=== PATIENT | female | born 2000 | race Caucasian/White ===

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

== ENCOUNTER 2022-01-12 20:55 | Emergency (ER) | payer OTHER ==
[~2022-01-12] VITALS: Ht 152.4 cm; Wt 63.5 kg
[~2022-01-12 20:55] MED LIST changes: -POTA8; +POTA8 PO
[2022-01-12 22:00] LABS: Source, Urine Clean Catch
[2022-01-12 22:10] LABS: Appearance, Urine Clear (Clear); Bilirubin, Urine Neg (Neg); Blood, Urine Neg (Neg); Color, Urine Yellow (P-Yellow); Glucose Qualitative, Urine Neg (Neg); Ketones, Urine 1+ (Neg); Leukocyte Esterase, Urine 1+ (Neg); Nitrite, Urine Neg (Neg); Protein, Urine Neg (Neg); Urobilinogen, Urine NORM (Normal)
[2022-01-12 22:18] LABS: BASOPHILS ABSOLUTE AUTO 0.03 K/mm3 (0.00-0.23); BASOPHILS PERCENT AUTO 0 % (0-2); EOSINOPHILS PERCENT AUTO 0 % (0-6); Hematocrit 36.7 % (33.0-51.0); IMMATURE GRAN ABSOLUTE AUTO 0.02 K/mm3 (0.00-0.10); IMMATURE GRAN PERCENT AUTO 0 % (0-1); LYMPHOCYTES ABSOLUTE AUTO 1.58 K/mm3 (0.84-5.20); LYMPHOCYTES PERCENT AUTO 20 % (21-46); MONOCYTES ABSOLUTE AUTO 0.27 K/mm3 (0.16-1.47); MONOCYTES PERCENT AUTO 3 % (4-13); Mean Corpuscular HGB 25.7 pg (26.0-34.0); Mean Corpuscular HGB Conc 32.7 g/dL (31.5-36.5); Mean Corpuscular Volume 79 fL (80-100); Mean Platelet Volume 10.7 fL (9.1-12.4); NEUTROPHILS ABSOLUTE AUTO 6.12 K/mm3 (1.96-9.15); NEUTROPHILS PERCENT AUTO 76 % (41-73); Platelet Count 240 K/mm3 (150-400); RDW Coefficient Variation 14.5 % (11.7-14.2); RDW Standard Deviation 41.2 fL (35.1-46.3); Red Blood Cell Count 4.67 M/mm3 (3.80-5.20); White Blood Cell Count 8.02 K/mm3 (4.00-11.30)
[2022-01-12 22:38] LABS: Bacteria Few /hpf; Red Blood Cells, Urine 0-2 /hpf (0-2); Squamous Epithelial Cells Few /hpf (Few)
[2022-01-12 22:49] LABS: Albumin, Blood 4.3 g/dL (3.4-5.0); Bilirubin, Total 0.4 mg/dL (0.1-1.0); Calcium, Blood 10.5 mg/dL (8.5-10.1); Creatinine, Blood 0.53 mg/dL (0.40-1.00); Globulin, Blood 4.4 g/dL (2.2-4.0); Potassium, Blood 3.2 mmol/L (3.5-5.5); Total Protein, Blood 8.7 g/dL (6.4-8.2)
[2022-01-12] MEDS ORDERED: LATUDA20 M3 PO (23:46)
[2022-01-13 01:26] LABS: Influenza A, PCR NEGATIVE (NEGATIVE); Influenza B, PCR NEGATIVE (NEGATIVE); Resp Syncytial Virus, PCR NEGATIVE (NEGATIVE); SARS-Cov-2 (COVID-19) PCR, MMC NEGATIVE (NEGATIVE)
[2022-01-14] MEDS ORDERED: LAMOTRIGINE25 M4 PO (11:30)
[2022-01-14] MEDS ORDERED: VENL75ER PO (11:30)
== END 2022-01-13 02:20 | disposition home or self-care (01) ==
LOC: ER 20:55
PROVIDERS: Student in an Organized Health Care Education/Training Program
DX: B34.9 Viral infection, unspecified (principal); R19.7 Diarrhea, unspecified; R11.2 Nausea with vomiting, unspecified; Z20.822 Contact with and (suspected) exposure to COVID-19
CPT/HCPCS: 0241U; 36415; 80053; 81001; 81025; 83690; 85025; 87086; 96360; 99284-25; A9270; J7030

== ENCOUNTER 2022-01-14 10:35 | Emergency (ER) | payer OTHER ==
[~2022-01-14] VITALS: Ht 152.4 cm; Wt 63.5 kg
[~2022-01-14 10:35] MED LIST changes: +LATUDA20 M3 PO
[2022-01-14 11:22] LABS: BASOPHILS ABSOLUTE AUTO 0.04 K/mm3 (0.00-0.23); BASOPHILS PERCENT AUTO 1 % (0-2); EOSINOPHILS ABSOLUTE AUTO 0.01 K/mm3 (0.00-0.68); EOSINOPHILS PERCENT AUTO 0 % (0-6); Hematocrit 38.2 % (33.0-51.0); Hemoglobin 12.1 g/dL (11.5-16.0); IMMATURE GRAN ABSOLUTE AUTO 0.03 K/mm3 (0.00-0.10); IMMATURE GRAN PERCENT AUTO 0 % (0-1); LYMPHOCYTES ABSOLUTE AUTO 1.36 K/mm3 (0.84-5.20); LYMPHOCYTES PERCENT AUTO 19 % (21-46); MONOCYTES ABSOLUTE AUTO 0.26 K/mm3 (0.16-1.47); MONOCYTES PERCENT AUTO 4 % (4-13); Mean Corpuscular HGB 25.2 pg (26.0-34.0); Mean Corpuscular HGB Conc 31.7 g/dL (31.5-36.5); Mean Corpuscular Volume 80 fL (80-100); Mean Platelet Volume 10.7 fL (9.1-12.4); NEUTROPHILS ABSOLUTE AUTO 5.52 K/mm3 (1.96-9.15); NEUTROPHILS PERCENT AUTO 77 % (41-73); Platelet Count 193 K/mm3 (150-400); RDW Coefficient Variation 14.1 % (11.7-14.2); RDW Standard Deviation 40.9 fL (35.1-46.3); White Blood Cell Count 7.22 K/mm3 (4.00-11.30)
[2022-01-14] MEDS ORDERED: VENL75ER PO (11:30)
[2022-01-14] MEDS ORDERED: LAMOTRIGINE25 M4 PO (11:30)
[2022-01-14 11:41] LABS: Albumin, Blood 4.1 g/dL (3.4-5.0); Bilirubin, Total 0.6 mg/dL (0.1-1.0); Bun/Creatinine Ratio 21.4 (12.0-20.0); Calcium, Blood 9.8 mg/dL (8.5-10.1); Creatinine, Blood 0.51 mg/dL (0.40-1.00); Globulin, Blood 4.3 g/dL (2.2-4.0); Potassium, Blood 2.6 mmol/L (3.5-5.5); Total Protein, Blood 8.4 g/dL (6.4-8.2)
[2022-01-15] MEDS ORDERED: Protonix40 MG PO (17:10)
[2022-01-15] MEDS ORDERED: ONDA4ODT MM (17:10)
== END 2022-01-14 15:07 | disposition home or self-care (01) ==
LOC: ER 10:35
PROVIDERS: Physician Assistant
DX: E87.6 Hypokalemia (principal); E83.42 Hypomagnesemia; N15.8 Other specified renal tubulo-interstitial diseases
CPT/HCPCS: 36415; 80053; 83735; 85025; A9270; J3475; J3480; J7030

== ENCOUNTER 2022-01-15 11:32 | Inpatient (IN) | payer OTHER ==
[~2022-01-15] VITALS: Ht 152.4 cm; Wt 63.5 kg
[~2022-01-15 11:32] MED LIST changes: +LAMOTRIGINE25 M4 PO; +VENL75ER PO
[2022-01-15 12:30] LABS: Albumin, Blood 4.1 g/dL (3.4-5.0); Albumin/Globulin Ratio 0.9 (0.8-1.8); Bilirubin, Total 0.5 mg/dL (0.1-1.0); Calcium, Blood 10.1 mg/dL (8.5-10.1); Creatinine, Blood 0.47 mg/dL (0.40-1.00); Globulin, Blood 4.5 g/dL (2.2-4.0); Magnesium, Blood 1.1 mg/dL (1.6-2.4); Potassium, Blood 3.3 mmol/L (3.5-5.5); Total Protein, Blood 8.6 g/dL (6.4-8.2)
[2022-01-15 15:06] LABS: BASOPHILS ABSOLUTE AUTO 0.03 K/mm3 (0.00-0.23); BASOPHILS PERCENT AUTO 0 % (0-2); EOSINOPHILS PERCENT AUTO 0 % (0-6); Hematocrit 35.7 % (33.0-51.0); Hemoglobin 11.8 g/dL (11.5-16.0); IMMATURE GRAN ABSOLUTE AUTO 0.02 K/mm3 (0.00-0.10); IMMATURE GRAN PERCENT AUTO 0 % (0-1); LYMPHOCYTES ABSOLUTE AUTO 1.67 K/mm3 (0.84-5.20); LYMPHOCYTES PERCENT AUTO 23 % (21-46); MONOCYTES ABSOLUTE AUTO 0.29 K/mm3 (0.16-1.47); MONOCYTES PERCENT AUTO 4 % (4-13); Mean Corpuscular HGB Conc 33.1 g/dL (31.5-36.5); Mean Corpuscular Volume 79 fL (80-100); Mean Platelet Volume 10.9 fL (9.1-12.4); NEUTROPHILS ABSOLUTE AUTO 5.42 K/mm3 (1.96-9.15); NEUTROPHILS PERCENT AUTO 73 % (41-73); Platelet Count 203 K/mm3 (150-400); RDW Coefficient Variation 14.4 % (11.7-14.2); RDW Standard Deviation 40.4 fL (35.1-46.3); Red Blood Cell Count 4.54 M/mm3 (3.80-5.20); White Blood Cell Count 7.43 K/mm3 (4.00-11.30)
[2022-01-15] MEDS ORDERED: Protonix40 MG PO (17:10)
[2022-01-15] MEDS ORDERED: ONDA4ODT MM (17:10)
[2022-01-15 19:00] LABS: Bun/Creatinine Ratio 11.9 (12.0-20.0); Calcium, Blood 10.8 mg/dL (8.5-10.1); Creatinine, Blood 0.67 mg/dL (0.40-1.00); Magnesium, Blood 2.3 mg/dL (1.6-2.4)
[2022-01-15 19:03] LABS: PCO2 Venous 55.4 mmHg (38-42); pH Blood Venous 7.19 (7.34-7.37)
[2022-01-15 19:04] LABS: Bicarbonate Venous 17.7 mmol/L (24.0-30.0)
--- NOTE | 2022-01-15 20:57 | NUR ---
ADMIT NOTE HANDOFF RECEIVED FROM [employer] PAWAN. PT ARRIVED TO FLOOR VIA WC. LR BOLUS FINISHING UP INFUSING. I DID CALL HOSPITALIST TO REQUEST HEALTHCARE ASSOCIATE. PT IN ISO PRECAUTIONS FOR R/O C DIFF GI PANEL. PT ORIENTED TO UNIT. CALL BUTTON WITHIN REACH. TELEMETRY: NSR @ 70 BPM. MONITORING LABS.
[2022-01-15 23:56] LABS: Bun/Creatinine Ratio 13.6 (12.0-20.0); Creatinine, Blood 0.51 mg/dL (0.40-1.00); Potassium, Blood 2.6 mmol/L (3.5-5.5)
--- NOTE | 2022-01-16 01:53 | NUR ---
CALLED HOSPITALIST INFORMED HIM OF PT'S LATEST LABS AND WHICH TYPE OF IV FLUIDS WERE INFUSING. THE HOSPITALIST HAS NOW ORDERED NEW LABS AND NEW IV FLUID ORDERS. THE NEW IV FLUIDS ARE NOW INFUSING ORDERED. WE WILL MONITOR LABS AND KEEP THE HOSPITALIST INFORMED.
[2022-01-16 02:14] LABS: Anion Gap Unable to Calculate mmol/L (6-16); Bun/Creatinine Ratio Unable to Calculate (12.0-20.0)
--- NOTE | 2022-01-16 06:11 | NUR ---
SHIFT SUMMARY New admit from ED. Alert and oriented. VSS. C/o intermittent abdominal pain 06/05. Family member at bedside. NPO. Receiving continuous fluid LR at 150ml/hr for 24hrs. On r/o contact precaution for c-diff. Needs stool sample. Assist x 1 with FWW to bathroom. Monitor labs for electrolyte imbalance.
[2022-01-16 06:25] LABS: BASOPHILS ABSOLUTE AUTO 0.06 K/mm3 (0.00-0.23); BASOPHILS PERCENT AUTO 1 % (0-2); EOSINOPHILS ABSOLUTE AUTO 0.02 K/mm3 (0.00-0.68); EOSINOPHILS PERCENT AUTO 0 % (0-6); Hematocrit 33.1 % (33.0-51.0); Hemoglobin 10.4 g/dL (11.5-16.0); IMMATURE GRAN ABSOLUTE AUTO 0.01 K/mm3 (0.00-0.10); IMMATURE GRAN PERCENT AUTO 0 % (0-1); LYMPHOCYTES ABSOLUTE AUTO 2.35 K/mm3 (0.84-5.20); LYMPHOCYTES PERCENT AUTO 40 % (21-46); MONOCYTES ABSOLUTE AUTO 0.37 K/mm3 (0.16-1.47); MONOCYTES PERCENT AUTO 6 % (4-13); Mean Corpuscular HGB 25.1 pg (26.0-34.0); Mean Corpuscular HGB Conc 31.4 g/dL (31.5-36.5); Mean Corpuscular Volume 80 fL (80-100); Mean Platelet Volume 10.8 fL (9.1-12.4); NEUTROPHILS ABSOLUTE AUTO 3.14 K/mm3 (1.96-9.15); NEUTROPHILS PERCENT AUTO 53 % (41-73); Platelet Count 172 K/mm3 (150-400); RDW Coefficient Variation 14.3 % (11.7-14.2); RDW Standard Deviation 41.1 fL (35.1-46.3); Red Blood Cell Count 4.15 M/mm3 (3.80-5.20); White Blood Cell Count 5.95 K/mm3 (4.00-11.30)
[2022-01-16 06:47] LABS: Bun/Creatinine Ratio 9.6 (12.0-20.0); Calcium, Blood 9.3 mg/dL (8.5-10.1); Creatinine, Blood 0.52 mg/dL (0.40-1.00); Magnesium, Blood 1.3 mg/dL (1.6-2.4); Potassium, Blood 2.7 mmol/L (3.5-5.5)
[2022-01-16 17:03] LABS: Adenovirus F 40/41 Not Detected (NOT DETECT); Astrovirus Not Detected (NOT DETECT); Campylobacter Sp Not Detected (NOT DETECT); Cryptosporidium Not Detected (NOT DETECT); Cyclospora Cayetanensis Not Detected (NOT DETECT); E. Coli O157 Not Detected (NOT DETECT); Entamoeba Histolytica Not Detected (NOT DETECT); Enteroaggregative E. coli-EAEC Not Detected (NOT DETECT); Enteropathogenic E. coli-EPEC Not Detected (NOT DETECT); Enterotoxigenic E. coli-ETEC Not Detected (NOT DETECT); Giardia Lamblia Not Detected (NOT DETECT); Norovirus GI/GII Not Detected (NOT DETECT); Plesiomonas Shigelloides Not Detected (NOT DETECT); Rotavirus A Not Detected (NOT DETECT); Salmonella Sp Not Detected (NOT DETECT); Sapovirus Not Detected (NOT DETECT); Shiga Toxin-prod E. coli-STEC Not Detected (NOT DETECT); Shigella/Enteroin E. coli-EIEC Not Detected (NOT DETECT); Vibrio Cholerae Not Detected (NOT DETECT); Vibrio Sp Not Detected (NOT DETECT); Yersinia Enterocolitica Not Detected (NOT DETECT)
--- NOTE | 2022-01-16 18:26 | NUR ---
SHIFT SUMMARY PT AWAKE AT START OF SHIFT. UP TO BTHRM USING FWW AND SBA WITH IV PUMP. ADMITTED FOR N/V, BUT PT REPORTED ONLY VOMITING ONCE. MEDICATED FOR C/O NAUSEA X2 THIS SHIFT. IVF'S INFUSING PER EMAR. PT ALSO RECEIVED MAG RIDER AND IV K+ WITHOUT DIFFICULTY. CALLS FOR ASSIST TO BTHRM NEEDED. IN CONTACT ISO TO R/O C-DIFF; STOOL CX OBTAINED AND SENT. PT'S MOM AT MOST OF THE DAY. REQUESTED FOOD AND DRINK; FULL LIQUID DIET ORDERED AND GIVEN PER DR MASSEY. PT TOLERATING WELL. DENIED FURTHER NEEDS AT THIS TIME. CALL LT IN REACH.
--- NOTE | 2022-01-16 19:49 | NUR ---
1800 PT STARTED HAVING CRAMPING IN LH AND THEN R ARM AND HAND. PT REPORTED CRAMPING IN ALL EXTREMITIES, BUT MOSTLY IN ARMS, WRISTS, AND HANDS. PER TELE MX, HR INCREASED TO 130 BRIEFLY AND THEN BACK DOWN TO 70-80'S. PT REQUESTED XANAX; GIVEN PER EMAR. PT SOON RELAXED AND WAS FEELING BETTER AGAIN. PT REPORTED SAME EXPERIENCE YESTERDAY, WHICH IS WHAT BROUGHT HER IN. S/O IN RM AT THIS EVENING. REPORT GIVEN TO ONCOMING RN.
[2022-01-17 04:39] LABS: Base Excess Venous 6.6 mmol/L; Bicarbonate Venous 29.1 mmol/L (24.0-30.0); PCO2 Venous 49.6 mmHg (38-42); pH Blood Venous 7.41 (7.34-7.37)
[2022-01-17 04:59] LABS: Bun/Creatinine Ratio 8.3 (12.0-20.0); Calcium, Blood 9.9 mg/dL (8.5-10.1); Creatinine, Blood 0.6 mg/dL (0.40-1.00); Magnesium, Blood 1.3 mg/dL (1.6-2.4); Potassium, Blood 3.2 mmol/L (3.5-5.5)
--- NOTE | 2022-01-17 06:03 | NUR ---
SHIFT SUMMARY Alert and oriented. VSS. Able to make needs known. Mom and boyfriend at bedside. Receiving LR at 150ml/hr and fluids DCed at 0100. Will continue to monitor labs for electrolyte imbalance.
--- NOTE | 2022-01-17 18:14 | NUR ---
SHIFT SUMMARY PT HAS MOSTLY COMPLAINED OF ANXIETY TODAY. IT SEEMS TO BE WORSE WHEN HER MOTHER IS IN THE ROOM SHE OFTEN COMES LOOKING FOR STAFF, BUT WHEN STAFF COMES IN THE ROOM PT IS SLEEPING OR WATCHING TV. MEDICATED FOR A HEADACHE AND A STOMACH ACHE THAT PT STATED SHE FELT CAME FROM "WORRYING" PT TOLERATED MAGNESIUM TODAY. SHE IS ABLE TO ATTEND TO HER NEEDS AND WALK TO THE BATHROOM AND SHOWER HERSELF BUT MOTHER REQUESTS SUPERVISION AT ALL TIMES FOR HER FROM STAFF. BED IN THE LOWEST POSITION AND CALL LIGHT IN REACH
--- NOTE | 2022-01-18 04:40 | NUR ---
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 FULL CODE. PT HAS HAD NO C/O ANXIETY THIS SHIFT. SHE HAS HAD COMPANY IN THE ROOM OVERNIGHT AND SHE HAS ONLY CALLED WHEN SHE NEEDED ASSISTANCE TO THE BATHROOM. NO C/O N/V THIS SHIFT. PT APPEARS TO HAVE SLEPT MOST OF THE NIGHT AND THIS NURSE HAS HAD VERY LITTLE INTERACTION W/ HER. OF 0500 THIS SHIFT, NO MEDS HAVE BEEN PASSED TO PT. SHE WILL LIKELY DISCHARGE HOME TODAY.
[2022-01-18 05:52] LABS: Calcium, Blood 10.4 mg/dL (8.5-10.1); Creatinine, Blood 0.67 mg/dL (0.40-1.00); Magnesium, Blood 1.5 mg/dL (1.6-2.4); Potassium, Blood 2.9 mmol/L (3.5-5.5)
[2022-01-18] MEDS ORDERED: MAGCHL64ER PO (12:47)
[2022-01-18] MEDS ORDERED: ALPR.25 PO (12:58)
[2022-01-18] MEDS ORDERED: ALDACTONE25 MG PO (12:58)
--- NOTE | 2022-01-18 13:07 | NUR ---
RN NOTE MS PINTO IS A&OX4. C/O WEAKNESS, NAUSEA AND LOWER ABDOMINAL TENDERNESS TODAY. GIVEN ZOFRAN WHICH SHE SAID TOOK THE NAUSEA AWAY PARTWAY. TOLERATING PO FOOD/FLUIDS. ADVANCED TO SOFT DIET AND SHE SAID THAT EATING IT IS HELPING HER TO FEEL A LOT BETTER. ELECTROLYTE REPLACEMENTS IN PROCESS IV THEN PLAN FOR DISCHARGE HOME. FAMILY AT BEDSIDE.
--- NOTE | 2022-01-18 16:20 | NUR ---
RN NOTE MS BLAIR C/O FEELING HEART RACING (SINUS TACH UP TO 120 PER NARROW GAUGE BRAKEMAN, DOWN TO 90S WHEN I WAS WITH HER) TINGLING IN HER HANDS, GENERAL ANXIETY AND FEELING UNCOMFORTABLE. SHE REQUESTED I STOP POTASSIUM, 435MLS HAD INFUSED, INFUSION STOPPED. REQUESTED TYLENOL. DR MASSEY CALLED AND INFORMED, TYLENOL ORDERED. PT SAID SHE'S FEELING BETTER. AWAITING TYLENOL.
--- NOTE | 2022-01-18 18:21 | NUR ---
DISCHARGE NOTE AFTER POTASSIUM INFUSION (SEE PREVIOUS NOTE) MS PINTO HAS BEEN TEARFUL. PAIN AND TINGLING HAS SUBSIDED, BUT SHE IS STILL CRYING. SHE HAS GOOD FAMILY SUPPORT, MOTHER AT HER BEDSIDE. PT SAID THAT SHE FEELS READY TO GO HOME. PIV REMOVED. PT AND MOTHER VERABALISED UNDERSTANDING OF VERBAL AND WRITTEN DISCHARGE INSTRUCTIONS. PT BEING ASSISTED TO THE CAR VIA WHEELCHAIR AT THIS TIME.
== END 2022-01-18 18:31 | disposition home or self-care (01) | DRG 699 ==
LOC: ER 11:32 → MEDS 11:34 → ER 19:07 → MEDS 19:07
PROVIDERS: Emergency Medicine; Family Medicine; Internal Medicine; Physician Assistant; Student in an Organized Health Care Education/Training Program; ADMIT Internal Medicine
DX: N15.8 Other specified renal tubulo-interstitial diseases (principal); E87.29 Other acidosis; E83.42 Hypomagnesemia; E87.6 Hypokalemia; F41.9 Anxiety disorder, unspecified; D50.9 Iron deficiency anemia, unspecified; K29.70 Gastritis, unspecified, without bleeding; E86.0 Dehydration; R25.2 Cramp and spasm; F31.9 Bipolar disorder, unspecified; Z79.899 Other long term (current) drug therapy
CPT/HCPCS: 36415; 80048; 80053; 82330; 82803; 83605; 83690; 83735; 84703; 85025; 87507; 93005; 93010; 96361; 96365; 96366; 96368; 96375; 96376; 99284-25; A9270; C9113; G0378; J0153; J1885; J2060; J2405; J3475; J3480; J7030; J7040; J7050; J7120

== ENCOUNTER 2022-11-13 19:28 | Emergency (ER) | payer OTHER ==
[~2022-11-13] VITALS: Ht 152.4 cm; Wt 65.8 kg
[~2022-11-13 19:28] MED LIST changes: +ALDACTONE25 MG PO; +ALPR.25 PO; +MAGCHL64ER PO; +Protonix40 MG PO
[2022-11-13 20:52] LABS: BASOPHILS ABSOLUTE AUTO 0.04 K/mm3 (0.00-0.23); BASOPHILS PERCENT AUTO 1 % (0-2); EOSINOPHILS PERCENT AUTO 0 % (0-6); Hematocrit 37.6 % (33.0-51.0); Hemoglobin 12.5 g/dL (11.5-16.0); IMMATURE GRAN ABSOLUTE AUTO 0.03 K/mm3 (0.00-0.10); IMMATURE GRAN PERCENT AUTO 0 % (0-1); LYMPHOCYTES ABSOLUTE AUTO 1.61 K/mm3 (0.84-5.20); LYMPHOCYTES PERCENT AUTO 19 % (21-46); MONOCYTES ABSOLUTE AUTO 0.37 K/mm3 (0.16-1.47); MONOCYTES PERCENT AUTO 4 % (4-13); Mean Corpuscular HGB Conc 33.2 g/dL (31.5-36.5); Mean Corpuscular Volume 81 fL (80-100); Mean Platelet Volume 10.3 fL (9.1-12.4); NEUTROPHILS ABSOLUTE AUTO 6.67 K/mm3 (1.96-9.15); NEUTROPHILS PERCENT AUTO 77 % (41-73); Platelet Count 211 K/mm3 (150-400); RDW Coefficient Variation 14.7 % (11.7-14.2); RDW Standard Deviation 42.9 fL (35.1-46.3); Red Blood Cell Count 4.63 M/mm3 (3.80-5.20); White Blood Cell Count 8.72 K/mm3 (4.00-11.30)
[2022-11-13 21:10] LABS: Albumin/Globulin Ratio 0.9 (0.8-1.8); Bilirubin, Total 0.4 mg/dL (0.1-1.0); Bun/Creatinine Ratio 15.1 (12.0-20.0); Calcium, Blood 9.7 mg/dL (8.5-10.1); Creatinine, Blood 0.47 mg/dL (0.40-1.00); Globulin, Blood 4.4 g/dL (2.2-4.0); Magnesium, Blood 1.6 mg/dL (1.6-2.4); Potassium, Blood 2.9 mmol/L (3.5-5.5); Total Protein, Blood 8.4 g/dL (6.4-8.2)
[2022-11-13 23:15] VITALS: BP 102/66
[2022-11-13] MEDS ORDERED: XANAX0.5 MG PO (23:48)
== END 2022-11-14 00:05 | disposition home or self-care (01) ==
LOC: ER 19:28
PROVIDERS: Student in an Organized Health Care Education/Training Program
DX: F41.0 Panic disorder [episodic paroxysmal anxiety] (principal); E87.6 Hypokalemia
CPT/HCPCS: 80053; 83735; 85025; 93005; 93010; 99283-25; A9270; J3475

== ENCOUNTER 2022-11-16 18:23 | Emergency (ER) | payer OTHER ==
[~2022-11-16] VITALS: Ht 152.4 cm; Wt 65.8 kg
[~2022-11-16 18:23] MED LIST changes: +XANAX0.5 MG PO
[2022-11-16 18:58] LABS: BASOPHILS ABSOLUTE AUTO 0.04 K/mm3 (0.00-0.23); BASOPHILS PERCENT AUTO 1 % (0-2); EOSINOPHILS ABSOLUTE AUTO 0.01 K/mm3 (0.00-0.68); EOSINOPHILS PERCENT AUTO 0 % (0-6); Hematocrit 37.9 % (33.0-51.0); Hemoglobin 12.6 g/dL (11.5-16.0); IMMATURE GRAN ABSOLUTE AUTO 0.02 K/mm3 (0.00-0.10); IMMATURE GRAN PERCENT AUTO 0 % (0-1); LYMPHOCYTES ABSOLUTE AUTO 1.75 K/mm3 (0.84-5.20); LYMPHOCYTES PERCENT AUTO 23 % (21-46); MONOCYTES PERCENT AUTO 4 % (4-13); Mean Corpuscular HGB 26.8 pg (26.0-34.0); Mean Corpuscular HGB Conc 33.2 g/dL (31.5-36.5); Mean Corpuscular Volume 81 fL (80-100); Mean Platelet Volume 10.7 fL (9.1-12.4); NEUTROPHILS ABSOLUTE AUTO 5.57 K/mm3 (1.96-9.15); NEUTROPHILS PERCENT AUTO 72 % (41-73); Platelet Count 228 K/mm3 (150-400); RDW Coefficient Variation 14.6 % (11.7-14.2); White Blood Cell Count 7.69 K/mm3 (4.00-11.30)
[2022-11-16 19:21] LABS: Albumin, Blood 4.5 g/dL (3.4-5.0); Albumin/Globulin Ratio 1.1 (0.8-1.8); Bilirubin, Total 0.4 mg/dL (0.1-1.0); Creatinine, Blood 0.47 mg/dL (0.40-1.00); Globulin, Blood 4.2 g/dL (2.2-4.0); Total Protein, Blood 8.7 g/dL (6.4-8.2)
[2022-11-16 21:30] VITALS: BP 118/59
== END 2022-11-16 22:05 | disposition home or self-care (01) ==
LOC: ER 18:23
PROVIDERS: Physician Assistant
DX: E83.42 Hypomagnesemia (principal); E87.6 Hypokalemia; Z79.899 Other long term (current) drug therapy
CPT/HCPCS: 80053; 83735; 85025; 93005; 93010; 99283-25

== ENCOUNTER 2024-08-16 16:15 | Emergency (ER) | payer OTHER ==
[~2024-08-16] VITALS: Ht 152.4 cm; Wt 81.2 kg
[2024-08-16] MEDS ORDERED: Magnesium Sulf 2 GM/Water 50ML 50 ML IV ONE (16:25)
[2024-08-16] MEDS ORDERED: Potassium Chloride 20 MEQ TabCR PO ONE (16:25)
[2024-08-16] MEDS ORDERED: NS 1,000 ML IV SCH ×2 (22:15→23:50)
[2024-08-16] MEDS ORDERED: Mag Sulfate 1 GM/D5% 100ML 100 ML IV ONE (22:20)
[2024-08-17 00:41] VITALS: BP 110/69
== END 2024-08-17 00:41 | disposition home or self-care (01) ==
LOC: ER 16:15
DX: O99.280 Endocrine, nutritional and metabolic diseases complicating pregnancy, unspecified trimester (principal); E83.42 Hypomagnesemia; E87.6 Hypokalemia; Z3A.00 Weeks of gestation of pregnancy not specified; Z79.899 Other long term (current) drug therapy
CPT/HCPCS: 96365; 96366; 99282-25; A9270; J3475; J7030

== ENCOUNTER → 2025-01-29 | Outpatient (CLI) | payer OTHER | LOC: LAB SHORT 19:24 → LAB 19:24 | DX: O09.93 Supervision of high risk pregnancy, unspecified, third trimester (principal); Z3A.00 Weeks of gestation of pregnancy not specified | CPT/HCPCS: 87081; 87150 ==

== ENCOUNTER 2025-02-22 19:01 | Inpatient (IN) | payer OTHER ==
[~2025-02-22] VITALS: Ht 152.4 cm; Wt 83.1 kg
[2025-02-22] MEDS ORDERED: Ondansetron HCl 2 MG / ML 2ML Vial IV PRN (19:25)
[2025-02-22] MEDS ORDERED: OXYTOCIN/RINGER'S LACTATE 500 ML IV SCH (19:25)
[2025-02-22] MEDS ORDERED: Oxytocin 10 Unit / ML Vial IM PRN (19:25)
[2025-02-22] MEDS ORDERED: Carboprost Tromethamine 250 MCG/ML 1ML Amp IM PRN (19:25)
[2025-02-22] MEDS ORDERED: OXYTOCIN/RINGER'S LACTATE 500 ML IV PRN (19:25)
[2025-02-22] MEDS ORDERED: FentaNYL 2mcg/ml-Bup 0.1% Epd 250 ML EPI PRN (19:25)
[2025-02-22] MEDS ORDERED: Methylergonovine Maleate 0.2MG / ML 1ML Amp IM PRN (19:25)
[2025-02-22] MEDS ORDERED: Tranexamic Acid 100 ML IV SCH (19:25)
[2025-02-22] MEDS ORDERED: ePHEDrine Sulfate 50 MG/ML 1ML Injection XX PRN (19:25)
[2025-02-22 19:52] VITALS: BP 119/66
[2025-02-22] MEDS ORDERED: MAGAMI (20:34)
[2025-02-22 20:35] LABS: BASOPHILS ABSOLUTE AUTO 0.01 K/mm3 (0.00-0.23); BASOPHILS PERCENT AUTO 0 % (0-2); EOSINOPHILS ABSOLUTE AUTO 0.00 K/mm3 (0.00-0.68); EOSINOPHILS PERCENT AUTO 0 % (0-6); Hematocrit 27.1 % (33.0-51.0); Hemoglobin 9.1 g/dL (11.5-16.0); IMMATURE GRAN ABSOLUTE AUTO 0.06 K/mm3 (0.00-0.10); IMMATURE GRAN PERCENT AUTO 1 % (0-1); LYMPHOCYTES ABSOLUTE AUTO 1.21 K/mm3 (0.84-5.20); LYMPHOCYTES PERCENT AUTO 13 % (21-46); MONOCYTES ABSOLUTE AUTO 0.33 K/mm3 (0.16-1.47); MONOCYTES PERCENT AUTO 4 % (4-13); Mean Corpuscular HGB Conc 33.6 g/dL (31.5-36.5); Mean Corpuscular Volume 109 fL (80-100); NEUTROPHILS ABSOLUTE AUTO 7.40 K/mm3 (1.96-9.15); NEUTROPHILS PERCENT AUTO 82 % (41-73); NRBC ABSOLUTE 0.04 K/mm3 (0.00-0.02); NRBC Auto 0.4 /100 WBC (0.0-0.2); Platelet Count 60 K/mm3 (150-400); RDW Coefficient Variation 17.0 % (11.7-14.2); RDW Standard Deviation 65.6 fL (35.1-46.3)
[2025-02-22] MEDS ORDERED: PRENATAL TABLE1 EAC2 PO (20:36)
[2025-02-22 21:37] VITALS: BP 120/76
[2025-02-22 21:48] LABS: Alanine Aminotransfer (ALT/SGP 16.0 U/L (12-78); Albumin, Blood 2.7 g/dL (3.4-5.0); Albumin/Globulin Ratio 0.7 (0.8-1.8); Anion Gap 11.0 mmol/L (3-11); Aspartate Aminotrans (AST/SGOT 18.0 U/L (12-37); Bilirubin, Total 0.4 mg/dL (0.1-1.0); Blood Urea Nitrogen 12.0 mg/dL (8-24); CO2, Blood 22.0 mmol/L (21-32); Calcium, Blood 8.9 mg/dL (8.5-10.1); Chloride, Blood 104.0 mmol/L (98-108); Creatinine, Blood 0.49 mg/dL (0.40-1.00); Globulin, Blood 3.8 g/dL (2.2-4.0); Glucose, Blood 126.0 mg/dL (70-99); Magnesium, Blood 1.3 mg/dL (1.6-2.4); Potassium, Blood 3.3 mmol/L (3.5-5.5); Sodium, Blood 134.0 mmol/L (136-145); Total Protein, Blood 6.5 g/dL (6.4-8.2)
[2025-02-22 22:06] VITALS: BP 107/62
[2025-02-22 22:36] VITALS: BP 116/65
[2025-02-22 23:06] VITALS: BP 105/56
[2025-02-23] VITALS (32 sets, daily range): BP systolic 91–129; BP diastolic 50–79
[2025-02-23] MEDS ORDERED: Penicillin G Potassium 5,000,000 UNITS in NS 250 ML IV ONE (00:30)
[2025-02-23] MEDS ORDERED: Penicillin G Potassium 2,500,000 UNITS in Dextrose 5% 100 ML IV SCH (05:00)
[2025-02-23] MEDS ORDERED: OXYTOCIN/RINGER'S LACTATE 500 ML IV SCH ×2 (07:20→17:30)
[2025-02-23 08:43] LABS: Hematocrit 27.2 % (33.0-51.0); Hemoglobin 9.0 g/dL (11.5-16.0); Mean Corpuscular HGB Conc 33.1 g/dL (31.5-36.5); Mean Corpuscular Volume 110 fL (80-100); NRBC ABSOLUTE 0.02 K/mm3 (0.00-0.02); NRBC Auto 0.2 /100 WBC (0.0-0.2); Platelet Count 54 K/mm3 (150-400); RDW Coefficient Variation 17.2 % (11.7-14.2); RDW Standard Deviation 67.2 fL (35.1-46.3)
[2025-02-23 08:50] LABS: Magnesium, Blood 1.2 mg/dL (1.6-2.4); Potassium, Blood 2.8 mmol/L (3.5-5.5)
[2025-02-23] MEDS ORDERED: FentaNYL Citrate 50 MCG/ML 2 ML Injection IV ONE (09:00)
[2025-02-23] MEDS ORDERED: Misc. Tablet PO SCH ×3 (09:00)
[2025-02-23] MEDS ORDERED: FentaNYL Citrate 50 MCG/ML 2 ML Injection ONE ×2 (09:04→16:00)
[2025-02-23] MEDS ORDERED: Citric Acid/Sodium Citrate 30 ML BTL PO ONE (10:10)
[2025-02-23] MEDS ORDERED: Metoclopramide HCl 5MG / ML 2ML Vial IV ONE (10:10)
[2025-02-23] MEDS ORDERED: CeFAZolin Sodium 2,000 MG in NS 100 ML IV SCH (10:15)
[2025-02-23] MEDS ORDERED: NS 100 ML IV ONE (11:04)
[2025-02-23] MEDS ORDERED: NS 100 ML IV PRN (11:20)
[2025-02-23] MEDS ORDERED: Potassium Chl 20MEQ/Water100ML 100 ML IV SCH (13:00)
[2025-02-23] MEDS ORDERED: Magnesium Sulf 2 GM/Water 50ML 50 ML IV ONE (13:00)
[2025-02-23 13:51] LABS: Hematocrit 28.5 % (33.0-51.0); Hemoglobin 9.2 g/dL (11.5-16.0); Mean Corpuscular HGB Conc 32.3 g/dL (31.5-36.5); Mean Corpuscular Volume 111 fL (80-100); NRBC ABSOLUTE 0.02 K/mm3 (0.00-0.02); NRBC Auto 0.2 /100 WBC (0.0-0.2); Platelet Count 84 K/mm3 (150-400); RDW Coefficient Variation 17.2 % (11.7-14.2); RDW Standard Deviation 67.5 fL (35.1-46.3)
[2025-02-23 15:36] LABS: BASOPHILS ABSOLUTE AUTO 0.01 K/mm3 (0.00-0.23); BASOPHILS PERCENT AUTO 0 % (0-2); EOSINOPHILS ABSOLUTE AUTO 0.01 K/mm3 (0.00-0.68); EOSINOPHILS PERCENT AUTO 0 % (0-6); Hematocrit 28.4 % (33.0-51.0); Hemoglobin 9.5 g/dL (11.5-16.0); IMMATURE GRAN ABSOLUTE AUTO 0.06 K/mm3 (0.00-0.10); IMMATURE GRAN PERCENT AUTO 1 % (0-1); LYMPHOCYTES ABSOLUTE AUTO 0.77 K/mm3 (0.84-5.20); LYMPHOCYTES PERCENT AUTO 8 % (21-46); MONOCYTES ABSOLUTE AUTO 0.10 K/mm3 (0.16-1.47); MONOCYTES PERCENT AUTO 1 % (4-13); Mean Corpuscular HGB Conc 33.5 g/dL (31.5-36.5); Mean Corpuscular Volume 111 fL (80-100); NEUTROPHILS ABSOLUTE AUTO 8.43 K/mm3 (1.96-9.15); NEUTROPHILS PERCENT AUTO 90 % (41-73); NRBC ABSOLUTE 0.00 K/mm3 (0.00-0.02); NRBC Auto 0.0 /100 WBC (0.0-0.2); Platelet Count 86 K/mm3 (150-400); RDW Coefficient Variation 17.1 % (11.7-14.2); RDW Standard Deviation 66.9 fL (35.1-46.3)
[2025-02-23] MEDS ORDERED: Tranexamic Acid 100 ML IV ONE (15:57)
[2025-02-23] MEDS ORDERED: Metoclopramide HCl 5MG / ML 2ML Vial ONE (15:58)
[2025-02-23] MEDS ORDERED: Citric Acid/Sodium Citrate 30 ML BTL ONE (15:58)
[2025-02-23] MEDS ORDERED: Oxytocin 10 Unit / ML Vial ONE (16:02)
[2025-02-23] MEDS ORDERED: Ondansetron HCl 2 MG / ML 2ML Vial ONE (16:40)
[2025-02-23] MEDS ORDERED: Dexamethasone Sod Phos 10 MG/ML 1ML VIAL ONE (16:40)
[2025-02-23] MEDS ORDERED: Bupivacaine 0.5% HCl 5 MG/ML 30MLVIAL ONE (16:51)
--- NOTE | 2025-02-23 17:02 | NUR ---
02/23/25 170 Narcisa Larson VIGOROUS MALE TO WARMER AND ATTNEDED BY MATT ZAMUDIO AND DR GOLD. 89 WEIGHT 2915 6 POUND 7 OUNCES
[2025-02-23] MEDS ORDERED: Ondansetron HCl 2 MG / ML 2ML Vial IV PRN ×2 (17:25→17:50)
[2025-02-23] MEDS ORDERED: Methylergonovine Maleate 0.2MG / ML 1ML Amp IM PRN (17:30)
[2025-02-23] MEDS ORDERED: Magnesium Hydroxide Conc 10 ML UDC PO PRN (17:30)
[2025-02-23] MEDS ORDERED: Rho(D) Immune Globulin 300 MCG / SYR IM ONE (17:35)
[2025-02-23] MEDS ORDERED: Morphine Sulfate 4 MG/1 ML Injection IV PRN (17:35)
[2025-02-23] MEDS ORDERED: Albuterol 2.5 MG/3 ML VIAL INH ONE (17:50)
[2025-02-23] MEDS ORDERED: Labetalol HCL 5 MG/ML 4ML Injection (Single Dose) IV PRN (17:50)
[2025-02-23] MEDS ORDERED: FentaNYL Citrate 50 MCG/ML 2 ML Injection IV PRN ×2 (17:50→17:55)
[2025-02-23] MEDS ORDERED: HYDROmorphone HCl/Pf 1MG SYR IV PRN ×2 (17:50)
[2025-02-23] MEDS ORDERED: Ketorolac Tromethamine 30mg Vial IV SCH (18:00)
[2025-02-23 21:26] LABS: Hematocrit 27.4 % (33.0-51.0); Hemoglobin 9.0 g/dL (11.5-16.0); Mean Corpuscular HGB Conc 32.8 g/dL (31.5-36.5); Mean Corpuscular Volume 111 fL (80-100); NRBC ABSOLUTE 0.00 K/mm3 (0.00-0.02); NRBC Auto 0.0 /100 WBC (0.0-0.2); Platelet Count 88 K/mm3 (150-400); RDW Coefficient Variation 16.9 % (11.7-14.2); RDW Standard Deviation 66.8 fL (35.1-46.3)
[2025-02-23] MEDS ORDERED: Ketorolac Tromethamine 30mg Vial IV PRN (22:00)
[2025-02-24] MEDS ORDERED: Rho(D) Immune Globulin 300 MCG / SYR IM ONE (00:30)
[2025-02-24] MEDS ORDERED: Rho(D) Immune Globulin 300 MCG / SYR IM SCH (03:55)
[2025-02-24] MEDS ORDERED: Rho(D) Immune Globulin 300 MCG / SYR IV SCH (04:00)
[2025-02-24 04:11] VITALS: BP 108/64
[2025-02-24 06:19] LABS: BASOPHILS ABSOLUTE AUTO 0.02 K/mm3 (0.00-0.23); BASOPHILS PERCENT AUTO 0 % (0-2); EOSINOPHILS ABSOLUTE AUTO 0.00 K/mm3 (0.00-0.68); EOSINOPHILS PERCENT AUTO 0 % (0-6); Hematocrit 27.9 % (33.0-51.0); Hemoglobin 9.0 g/dL (11.5-16.0); IMMATURE GRAN ABSOLUTE AUTO 0.04 K/mm3 (0.00-0.10); IMMATURE GRAN PERCENT AUTO 0 % (0-1); LYMPHOCYTES ABSOLUTE AUTO 2.65 K/mm3 (0.84-5.20); LYMPHOCYTES PERCENT AUTO 22 % (21-46); MONOCYTES ABSOLUTE AUTO 0.51 K/mm3 (0.16-1.47); MONOCYTES PERCENT AUTO 4 % (4-13); Mean Corpuscular HGB Conc 32.3 g/dL (31.5-36.5); Mean Corpuscular Volume 113 fL (80-100); NEUTROPHILS ABSOLUTE AUTO 8.93 K/mm3 (1.96-9.15); NEUTROPHILS PERCENT AUTO 74 % (41-73); NRBC ABSOLUTE 0.00 K/mm3 (0.00-0.02); NRBC Auto 0.0 /100 WBC (0.0-0.2); Platelet Count 83 K/mm3 (150-400); RDW Coefficient Variation 17.3 % (11.7-14.2); RDW Standard Deviation 71.0 fL (35.1-46.3)
[2025-02-24 06:39] LABS: Anion Gap 8.0 mmol/L (3-11); Blood Urea Nitrogen 6.0 mg/dL (8-24); CO2, Blood 26.0 mmol/L (21-32); Calcium, Blood 9.1 mg/dL (8.5-10.1); Chloride, Blood 107.0 mmol/L (98-108); Creatinine, Blood 0.46 mg/dL (0.40-1.00); Glucose, Blood 87.0 mg/dL (70-99); Magnesium, Blood 1.5 mg/dL (1.6-2.4); Potassium, Blood 3.4 mmol/L (3.5-5.5); Sodium, Blood 138.0 mmol/L (136-145)
[2025-02-24 07:21] VITALS: BP 108/61
[2025-02-24] MEDS ORDERED: Prenatal Vit/FE Fumarate/FA 1 Tab PO SCH (09:00)
[2025-02-24] MEDS ORDERED: Polyethylene Glycol 3350 17 gm PO PRN (09:15)
[2025-02-24 12:14] VITALS: BP 113/58
[2025-02-24] MEDS ORDERED: OXAYDO5 M1 PO (13:51)
[2025-02-24 18:01] VITALS: BP 105/50
[2025-02-24 20:21] VITALS: BP 102/56
[2025-02-25 00:11] VITALS: BP 115/62
[2025-02-25 03:27] VITALS: BP 140/65
[2025-02-25 03:28] VITALS: BP 108/54
[2025-02-25 06:19] LABS: Hematocrit 27.1 % (33.0-51.0); Hemoglobin 8.6 g/dL (11.5-16.0); Mean Corpuscular HGB Conc 31.7 g/dL (31.5-36.5); Mean Corpuscular Volume 116 fL (80-100); NRBC ABSOLUTE 0.00 K/mm3 (0.00-0.02); NRBC Auto 0.0 /100 WBC (0.0-0.2); Platelet Count 66 K/mm3 (150-400); RDW Coefficient Variation 17.6 % (11.7-14.2); RDW Standard Deviation 74.9 fL (35.1-46.3)
[2025-02-25 06:44] LABS: Anion Gap 8.0 mmol/L (3-11); Blood Urea Nitrogen 9.0 mg/dL (8-24); CO2, Blood 27.0 mmol/L (21-32); Calcium, Blood 9.4 mg/dL (8.5-10.1); Chloride, Blood 107.0 mmol/L (98-108); Creatinine, Blood 0.48 mg/dL (0.40-1.00); Glucose, Blood 75.0 mg/dL (70-99); Magnesium, Blood 1.1 mg/dL (1.6-2.4); Potassium, Blood 3.0 mmol/L (3.5-5.5); Sodium, Blood 139.0 mmol/L (136-145)
[2025-02-25 07:13] VITALS: BP 113/59
[2025-02-25] MEDS ORDERED: FLU VACC TS2025-26(6MOS UP)/PF 45 MCG/0.5 ML SYRINGE IM SCH (09:50)
[2025-02-25 11:12] VITALS: BP 115/59
== END 2025-02-25 12:49 | disposition home or self-care (01) | DRG 788 ==
LOC: OBS 19:01 → BC 19:06
PROVIDERS: ADMIT Obstetrics & Gynecology
PROC: 3E0P7VZ Introduction of Hormone into Female Reproductive, Via Natural or Artificial Opening (ICD-10-PCS; 2025-02-22)
PROC: 3E033VJ Introduction of Other Hormone into Peripheral Vein, Percutaneous Approach (ICD-10-PCS; 2025-02-22)
PROC: 10D00Z1 Extraction of Products of Conception, Low, Open Approach (ICD-10-PCS; principal; 2025-02-23 16:00)
DX: O99.12 Other diseases of the blood and blood-forming organs and certain disorders involving the immune mechanism complicating childbirth (principal); D69.6 Thrombocytopenia, unspecified; Z37.0 Single live birth; Z3A.39 39 weeks gestation of pregnancy; O99.892 Other specified diseases and conditions complicating childbirth; N15.8 Other specified renal tubulo-interstitial diseases; N18.9 Chronic kidney disease, unspecified; O99.214 Obesity complicating childbirth; O99.02 Anemia complicating childbirth; O99.824 Streptococcus B carrier state complicating childbirth; O99.284 Endocrine, nutritional and metabolic diseases complicating childbirth; E87.6 Hypokalemia; E83.42 Hypomagnesemia; O26.893 Other specified pregnancy related conditions, third trimester; Z87.891 Personal history of nicotine dependence; Z79.899 Other long term (current) drug therapy
CPT/HCPCS: 36415; 59414; 80048; 80053; 83735; 84132; 85025; 85027; 85460; 86850; 86900; 86901; 86923; 90471; A9270; J1100; J2405; J2540; J2590; J2765; J2791; J3010; J3475; J3480; J7050; J7120; P9035